=== PATIENT | male | born 1950 | race Caucasian/White ===

== ENCOUNTER → 2017-03-20 | Outpatient (CLI) | payer MEDICARE ==
--- NOTE | 2017-03-20 09:22 | RAD ---
Ultrasound of the abdominal aorta, screening exam for abdominal aortic aneurysm 03/20/2017 Indication: 67-year-old male with history of tobacco use. Comparison study: None available Discussion: Sonographic evaluation of the abdominal aorta was performed. Static images are submitted to PACS. Limited color Doppler imaging evaluation was also performed. The proximal abdominal aorta measures up to 2 cm in diameter. The midabdominal aorta measures up to 2 cm in diameter. The distal abdominal aorta measures up to 2.2 cm in diameter. Partially visualized portions of the common iliac arteries or normal in caliber bilaterally.. No gross abnormality is identified on color Doppler imaging. Impression: No sonographic evidence of abdominal aortic aneurysm.
== END | disposition home or self-care (01) ==
LOC: US 08:53
PROVIDERS: ATTEND Family Medicine
DX: Z13.89 Encounter for screening for other disorder (principal); I71.4 Abdominal aortic aneurysm, without rupture; Z87.891 Personal history of nicotine dependence
CPT/HCPCS: 76770